=== PATIENT | female | born 1945 | race Caucasian/White ===

== ENCOUNTER 2017-03-23 11:55 | Emergency (ER) | payer OTHER ==
[~2017-03-23 11:55] MED LIST: ALBUTEROL17 GM; ASPIRIN81 MG; LISINOPRIL; METOPROLOL TART75 MG; PANTOPRAZOLE SO40 MG; PRADAXA75 MG PO; SINGULAIR; ZANTAC PO
== END 2017-03-23 12:06 | disposition home or self-care (01) ==
LOC: SED 11:55
DX: S50.872A Other superficial bite of left forearm, initial encounter (principal); L03.114 Cellulitis of left upper limb; I25.2 Old myocardial infarction; I10 Essential (primary) hypertension; I48.91 Unspecified atrial fibrillation; K21.9 Gastro-esophageal reflux disease without esophagitis; Z90.710 Acquired absence of both cervix and uterus; Z79.82 Long term (current) use of aspirin; Z79.899 Other long term (current) drug therapy; Z88.0 Allergy status to penicillin; Z88.2 Allergy status to sulfonamides; Z88.8 Allergy status to other drugs, medicaments and biological substances; W54.0XXA Bitten by dog, initial encounter; Y92.009 Unspecified place in unspecified non-institutional (private) residence as the place of occurrence of the external cause
CPT/HCPCS: 96372; 99283